=== PATIENT | female | born 1950 | race Caucasian/White ===

== ENCOUNTER 2022-03-03 15:10 | Emergency (ER) | payer BC ==
[~2022-03-03] VITALS: Ht 162.6 cm; Wt 77.1 kg
[2022-03-03 15:12] VITALS: BP 163/97
--- NOTE | 2022-03-03 15:25 | NUR ---
PT W/C ASSISTED TO BED 10. PLACED ON GOWN AND MONITOR
--- NOTE | 2022-03-03 15:37 | NUR ---
Note dc in EDM - 03/03/22 at 1545 by MNCOLETTE 52 Y/O FEMALE PRESENTS TO ED REQUESTING PAXLOVID, PT STATES TESTING POSITIVE FOR COVID 4DAYS AGO, PRESENTS WITH BODY ACHES, HEADACHE, RUNNY NOSE, COUGH. TOOK MOTRIN WITH MINIMAL RELIEF. ALLERGY: PCN PMH: HTN
--- NOTE | 2022-03-03 15:37 | NUR ---
71 Y/O FEMALE BIB FAMILY C/O SUDDEN ONSET DIZZINESS X1 HOUR AGO, PT STATES THAT SHE 'FEELS THOUGH THE WORLD IS GOING AROUND HER", DENIES ANY NUMBNESS, TINGLING, BLURRED VISION, HEADACHE, NV, BILATERAL HAND INSULATION PROFESSIONAL EQUAL, NO SLURRED SPEECH NOTED. NKA PMH: HTN, DM
[2022-03-03] MEDS ORDERED: NACL 0.9% 1,000 ML IV ONE (15:45)
[2022-03-03] MEDS ORDERED: MECLIZINE 25 MG TAB PO ONE (15:45)
[2022-03-03] MEDS ORDERED: ONDANSETRON 4 MG/2 ML VIAL IVP ONE (15:45)
--- NOTE | 2022-03-03 16:14 | NUR ---
PT TAKEN TO CT VIA [facility]
[2022-03-03 16:16] LABS: BASOPHILS % (AUTO) 0.3 % (0.0-2.0); EOSINOPHILS # (AUTO) 0.1 K/uL (0-0.4); EOSINOPHILS % (AUTO) 0.7 % (0.0-4.0); HEMATOCRIT 38.4 % (36-48); HEMOGLOBIN 12.6 g/dL (12.0-16.0); LYMPHOCYTES # (AUTO) 1.2 K/uL (2.5-16.5); LYMPHOCYTES % (AUTO) 12.3 % (20.5-51.1); MEAN CORPUSCULAR HEMOGLOBIN 29 pg (27-31); MEAN CORPUSCULAR HGB CONC 33 g/dL (33-37); MEAN CORPUSCULAR VOLUME 88.8 fL (80-94); MONOCYTES # (AUTO) 0.5 K/uL (0.8-1.0); MONOCYTES % (AUTO) 4.7 % (1.7-9.3); NEUTROPHILS # (AUTO) 8.1 K/uL (1.8-7.7); PLATELET COUNT (AUTO) 279 K/uL (140-450); RED BLOOD CELL COUNT(AUTO) 4.32 MIL/uL (4.20-5.40); RED CELL DISTRIBUTION WIDTH 13.6 % (11.6-13.7); WHITE BLOOD COUNT (AUTO) 9.8 K/uL (4.8-10.8)
[2022-03-03 16:38] LABS: ALBUMIN 3.7 g/dL (3.4-5.0); ANION GAP 16.6 (8-16); ASPARTATE AMINOTRANSFERASE 22 U/L (15-37); CARBON DIOXIDE 26.9 mmol/L (21-32); CHLORIDE 102 mmol/L (98-107); GLUCOSE 158 mg/dL (74-106); MAGNESIUM 1.5 mg/dL (1.8-2.4); POTASSIUM 3.5 mmol/L (3.5-5.1); SODIUM SERUM 142 mmol/L (136-145); TOTAL BILIRUBIN 0.3 mg/dL (0.0-1.0); UREA NITROGEN, BLOOD 12 mg/dL (7-18)
--- NOTE | 2022-03-03 17:21 | NUR ---
PT STATED SHE IS UNABLE TO URINATE AT THE MOMENT
--- NOTE | 2022-03-03 17:29 | NUR ---
DR MURRY AT BEDSIDE FOR REEVAL
[2022-03-03] MEDS ORDERED: MAGNESIUM OXIDE 400 MG TAB PO ONE (17:30)
[2022-03-03] MEDS ORDERED: METO-744 PO (18:03)
[2022-03-03] MEDS ORDERED: HYDR-4421 PO (18:03)
[2022-03-03] MEDS ORDERED: METF-1139 PO (18:03)
[2022-03-03] MEDS ORDERED: OMEP-283 PO (18:06)
[2022-03-03] MEDS ORDERED: LOSA100T51 PO (18:06)
[2022-03-03] MEDS ORDERED: ATOR20TA40 PO (18:06)
--- NOTE | 2022-03-03 18:17 | NUR ---
TELENEURO AT BEDSIDE
--- NOTE | 2022-03-03 18:47 | NUR ---
PT TAKEN TO CT VIA [facility]
--- NOTE | 2022-03-03 19:18 | NUR ---
Pt report given to GIA GIBSON. Transfer of care at this time.
[2022-03-03 19:20] LABS: APPEARANCE,URINE CLEAR (CLEAR); BILIRUBIN,URINE NEGATIVE (NEGATIVE); BLOOD, URINE NEGATIVE (NEGATIVE); COLOR,URINE YELLOW (YELLOW); LEUKOCYTE ESTERASE ,URINE NEGATIVE (NEGATIVE); NITRITE, URINE NEGATIVE (NEGATIVE); PH,URINE 5.5 (5.0-9.0); UGLUCOSE NEGATIVE (NEGATIVE)
--- NOTE | 2022-03-03 20:00 | NUR ---
pt is resting, alert and oriented x 4. answers questions. pt voided 100 ml. no sign of resspiratory ditress. lower the bed.
[2022-03-03] MEDS ORDERED: ONDA-188 PO (20:57)
[2022-03-03] MEDS ORDERED: MECL-303 PO (20:57)
[2022-03-03 21:39] VITALS: BP 147/86
--- NOTE | 2022-03-03 21:41 | NUR ---
Patient discharged with v/s stable. Written and verbal after care instructions given and explained. Patient verbalized understanding. Ambulatory with steady gait. All questions addressed prior to discharge. Advised to follow up with PMD. pt left with her son and tooke her belonings with her
== END 2022-03-03 21:41 | disposition home or self-care (01) ==
LOC: MED 15:10
DX: R42 Dizziness and giddiness (principal); Z20.822 Contact with and (suspected) exposure to COVID-19; I10 Essential (primary) hypertension; E11.9 Type 2 diabetes mellitus without complications; Z79.4 Long term (current) use of insulin; Z79.899 Other long term (current) drug therapy
CPT/HCPCS: 36415; 70450; 70496; 70498; 71045; 80053; 81003; 83735; 84484; 85025; 87426; 87804; 93005; 96361; 96374; 99285; J2405; J7030; J8597; Q0092